=== PATIENT | female | born 1965 | race Native Hawaiian/Other Pacific Islander ===

== ENCOUNTER 2017-04-25 01:12 | Outpatient (CLI) | payer OTHER ==
[~2017-04-25 01:12] MED LIST: ACET-309 PO; ALBUSOL IN; AZAT50TA2 PO; DICL1GEL2 TOP; DOCU100C10 PO; FURO40TA93 PO; GAS RELIEF125 M1 PO; GRALISE600 MG PO; GUAI600T70 PO; IBUP800T30 PO; INSU100P; LIDOPATCH TOP; LORAZEPAM1 MG PO; MORPHINE SUL100 MG PO; MORPHINE SUL15 M1 PO; MORPHINE SUL30 M2 PO; MORPHINE SUL30 MG PO; MORPHINE SUL60 MG PO; MORPHINE SULFAT30 MG PO; NEURONTIN600 MG PO; NOVOLOG MIX 70/30 PR SC; NOVOLOG MIX 70/30 SC; POTA20TA4 PO; PRED10TA27 PO; PROAIR HFA IN; SERT100T PO; TEMA30CA18 PO; TIZA4TAB5 PO; WELLBUTRIN150 MG PO; ZOFRAN8 MG PO; [UNRECOGNIZED DRUG - CODE] INJ
== END 2017-04-25 21:43 | disposition home or self-care (01) ==
LOC: RAD 01:12
DX: R06.02 Shortness of breath (principal)

== ENCOUNTER 2020-04-26 22:03 | Inpatient (IN) | payer OTHER ==
[~2020-04-26] VITALS: Ht 170.2 cm; Wt 125.4 kg
[2020-04-26 22:03] VITALS: BP 169/96; TEMP 98.5
[2020-04-26 22:58] LABS: PLATELET COUNT 346 K/uL (152-353)
[2020-04-26 23:00] VITALS: BP 157/104
[2020-04-26 23:03] LABS: POTASSIUM 3.9 mmol/L (3.6-5.2); SODIUM 138 mmol/L (136-145)
[2020-04-27] VITALS (9 sets, daily range): BP systolic 126–165; BP diastolic 79–100; TEMP 98–98.9; Ht 170.2 cm; Wt 125.4 kg
[2020-04-27] MEDS ORDERED: CARV12.5 PO (03:57)
[2020-04-27] MEDS ORDERED: CLON1TAB18 PO (03:58)
[2020-04-27] MEDS ORDERED: LAMICTAL200 MG PO (03:59)
[2020-04-27] MEDS ORDERED: COZAAR100 MG PO (04:00)
[2020-04-27] MEDS ORDERED: ENDOCET1 TA1 PO (04:03)
[2020-04-27] MEDS ORDERED: TRAMADOL HYDROC50 MG PO (04:04)
[2020-04-27 08:22] LABS: PLATELET COUNT 323 K/uL (152-353)
[2020-04-27 08:31] LABS: POTASSIUM 4.4 mmol/L (3.6-5.2)
[2020-04-28 00:06] VITALS: BP 114/71; TEMP 97.8
[2020-04-28 04:00] VITALS: BP 139/92; TEMP 98
[2020-04-28 05:59] LABS: PLATELET COUNT 351 K/uL (152-353)
[2020-04-28 06:51] LABS: POTASSIUM 3.8 mmol/L (3.6-5.2)
[2020-04-28 08:00] VITALS: BP 131/88; TEMP 97.9
[2020-04-28 12:00] VITALS: BP 133/85; TEMP 97.9
[2020-04-28 16:00] VITALS: BP 123/64; TEMP 97.6
[2020-04-28] MEDS ORDERED: AZIT250T3 PO (20:01)
[2020-04-28] MEDS ORDERED: LEVAQUIN250 MG PO (20:06)
== END 2020-04-28 21:05 | disposition home or self-care (01) | DRG 193 ==
LOC: ED 22:22 → MED/SURG 04-27 02:05 → ED 04-27 02:05 → MED/SURG 04-27 02:05
PROVIDERS: ADMIT Family Medicine; ATTEND Internal Medicine Endocrinology, Diabetes & Metabolism
DX: J18.8 Other pneumonia, unspecified organism (principal); J96.21 Acute and chronic respiratory failure with hypoxia; E11.65 Type 2 diabetes mellitus with hyperglycemia; J44.9 Chronic obstructive pulmonary disease, unspecified; D72.828 Other elevated white blood cell count; F32.89 Other specified depressive episodes
CPT/HCPCS: 36415; 80048; 80053; 81000; 82550; 82947; 83605; 83880; 84484; 85027; 85379; 87040; 87635; 94667; 94760; 96365; 96375; 99284; J0456; J0696; J1815; J2930; U0003

== ENCOUNTER 2020-06-25 13:22 | Outpatient (CLI) | payer OTHER ==
[~2020-06-25 13:22] MED LIST changes: +AZIT250T3 PO; +CARV12.5 PO; +CLON1TAB18 PO; +COZAAR100 MG PO; +ENDOCET1 TA1 PO; +LAMICTAL200 MG PO; +LEVAQUIN250 MG PO; +TRAMADOL HYDROC50 MG PO
== END 2020-06-25 22:19 | disposition home or self-care (01) ==
LOC: INF 13:22
PROVIDERS: ATTEND Internal Medicine
DX: Z23 Encounter for immunization (principal)
CPT/HCPCS: 96372

== ENCOUNTER 2020-07-31 14:01 | Outpatient (CLI) | payer OTHER | END 2020-07-31 19:57 | disposition home or self-care (01) | LOC: INF 14:01 | PROVIDERS: ATTEND Internal Medicine | DX: Z23 Encounter for immunization (principal) | CPT/HCPCS: 96372 ==

== ENCOUNTER 2021-06-30 06:51 | Observation (INO) | payer OTHER ==
[~2021-06-30] VITALS: Ht 170.2 cm; Wt 121.6 kg
[2021-06-30 06:55] VITALS: BP 159/95; TEMP 97.1
[2021-06-30 07:27] LABS: PLATELET COUNT 345 K/uL (152-353)
[2021-06-30 07:47] LABS: POTASSIUM 4.4 mmol/L (3.6-5.2)
[2021-06-30] MEDS ORDERED: CARV6.25 PO (13:10)
[2021-06-30] MEDS ORDERED: MECLIZINE25 MG PO (13:17)
[2021-06-30] MEDS ORDERED: SEROQUEL100 MG PO (13:18)
[2021-06-30] MEDS ORDERED: FLUTICASON50 MCG/AC1 NAS (13:20)
[2021-06-30] MEDS ORDERED: ONDANSETRON HYDR8 MG PO ×2 (13:21)
[2021-06-30] MEDS ORDERED: HYDR10TA47 PO (13:22)
[2021-06-30 14:54] VITALS: BP 147/108; TEMP 97.9; Ht 170.2 cm; Wt 121.6 kg
[2021-06-30 16:00] VITALS: BP 128/94; TEMP 97.6
[2021-06-30 20:00] VITALS: BP 125/69; TEMP 98.9
[2021-06-30 23:43] VITALS: BP 129/77; TEMP 98.6
[2021-07-01 04:00] VITALS: BP 143/98; TEMP 97.8
[2021-07-01 08:00] VITALS: BP 137/105; TEMP 97.6
[2021-07-01 12:00] VITALS: BP 140/85; TEMP 98.1
[2021-07-01 16:00] VITALS: BP 142/93; TEMP 98.3
[2021-07-01 16:02] LABS: PLATELET COUNT 294 K/uL (152-353)
[2021-07-01 16:09] LABS: POTASSIUM 3.8 mmol/L (3.6-5.2)
[2021-07-01 20:00] VITALS: BP 143/85; TEMP 97.7
[2021-07-02] VITALS: BP 122/77; TEMP 98.2
[2021-07-02 04:00] VITALS: BP 136/85; TEMP 98.7
[2021-07-02 08:00] VITALS: BP 126/79; TEMP 98.2
[2021-07-02 12:00] VITALS: BP 132/74; TEMP 98.3
[2021-07-02] MEDS ORDERED: PROTONIX20 MG PO (12:02)
[2021-07-02] MEDS ORDERED: PEPCID40 MG PO (12:16)
== END 2021-07-02 13:55 | disposition home or self-care (01) ==
LOC: ED 06:51 → MED/SURG 09:15
PROVIDERS: Emergency Medicine; Internal Medicine; ADMIT Internal Medicine Endocrinology, Diabetes & Metabolism; ATTEND Internal Medicine Endocrinology, Diabetes & Metabolism
DX: R07.89 Other chest pain (principal); J96.10 Chronic respiratory failure, unspecified whether with hypoxia or hypercapnia; Z99.81 Dependence on supplemental oxygen; J84.89 Other specified interstitial pulmonary diseases; E11.9 Type 2 diabetes mellitus without complications; G47.33 Obstructive sleep apnea (adult) (pediatric); E66.01 Morbid (severe) obesity due to excess calories; F32.A Depression, unspecified; D63.8 Anemia in other chronic diseases classified elsewhere; K57.92 Diverticulitis of intestine, part unspecified, without perforation or abscess without bleeding; I10 Essential (primary) hypertension; K76.0 Fatty (change of) liver, not elsewhere classified; R10.13 Epigastric pain
CPT/HCPCS: 36600; 80053; 81000; 81002; 82550; 82805; 82948; 83690; 84484; 85027; 85610; 87086; 87088; 87635; 93005; 94760; 96360; 96361; 96372; 96375; 99220; 99284; G0378; J1650; J1815; J1956; J2060; J2270; J2405; J2550; J3490; Q9963; U0003

== ENCOUNTER 2022-02-16 13:23 | Outpatient (CLI) | payer OTHER ==
[~2022-02-16 13:23] MED LIST changes: +CARV6.25 PO; +FLUTICASON50 MCG/AC1 NAS; +HYDR10TA47 PO; +MECLIZINE25 MG PO; +ONDANSETRON HYDR8 MG PO; +PEPCID40 MG PO; +PROTONIX20 MG PO; +SEROQUEL100 MG PO
== END 2022-02-16 19:17 | disposition home or self-care (01) ==
LOC: MAMMO 13:23
PROVIDERS: ATTEND Nurse Practitioner Family
DX: N64.59 Other signs and symptoms in breast (principal); M79.621 Pain in right upper arm; M79.622 Pain in left upper arm; R07.89 Other chest pain

== ENCOUNTER 2022-05-14 13:46 | Outpatient (CLI) | payer OTHER | END 2022-05-14 19:59 | disposition home or self-care (01) | LOC: MRI 13:46 | PROVIDERS: ATTEND Internal Medicine | DX: M54.59 Other low back pain (principal); M62.81 Muscle weakness (generalized) ==

== ENCOUNTER 2022-10-03 08:09 | Observation (INO) | payer OTHER ==
[~2022-10-03] VITALS: Ht 170.2 cm; Wt 118.2 kg
[2022-10-03] VITALS (11 sets, daily range): BP systolic 110–144; BP diastolic 64–101; TEMP 97–98.6; Ht 170.2 cm; Wt 118.2 kg
[2022-10-03 08:28] LABS: PLATELET COUNT 372 K/uL (152-353)
[2022-10-03 08:37] LABS: SODIUM 131 mmol/L (136-145)
[2022-10-03] MEDS ORDERED: CLONAZEPAM PO (18:32)
[2022-10-03] MEDS ORDERED: LAMICTAL200 MG PO (18:33)
[2022-10-03] MEDS ORDERED: TRESIBA SC (18:34)
[2022-10-03] MEDS ORDERED: HUMALOG KW100 UNIT/M SC (18:35)
[2022-10-03] MEDS ORDERED: PANTOPRAZOLE 40MG TA PO (18:35)
[2022-10-03] MEDS ORDERED: FAMOTIDINE40 MG PO (18:35)
[2022-10-03] MEDS ORDERED: CARV12.5 PO (18:36)
[2022-10-03] MEDS ORDERED: QUET300T PO (18:36)
[2022-10-03] MEDS ORDERED: TIZA4TAB5 PO (18:37)
[2022-10-04 03:56] VITALS: BP 104/56; TEMP 98.3
[2022-10-04 08:07] VITALS: BP 131/75; TEMP 97.7
[2022-10-04] MEDS ORDERED: INSU-1996 SC (11:26)
[2022-10-04] MEDS ORDERED: INSU100P SC (11:27)
[2022-10-04] MEDS ORDERED: PRED20TA27 PO (11:29)
[2022-10-04] MEDS ORDERED: AZIT250T3 PO (11:29)
[2022-10-04 12:00] VITALS: BP 136/85; TEMP 97.6
[2022-10-04 16:00] VITALS: BP 136/91; TEMP 98
== END 2022-10-04 17:22 | disposition home or self-care (01) ==
LOC: ED 08:09 → MED/SURG 10:03
PROVIDERS: Family Medicine; ADMIT Internal Medicine; ATTEND Internal Medicine
DX: J44.1 Chronic obstructive pulmonary disease with (acute) exacerbation (principal); E11.65 Type 2 diabetes mellitus with hyperglycemia; K31.84 Gastroparesis; E11.40 Type 2 diabetes mellitus with diabetic neuropathy, unspecified; Z79.4 Long term (current) use of insulin; E66.01 Morbid (severe) obesity due to excess calories; Z68.41 Body mass index [BMI] 40.0-44.9, adult; Z99.81 Dependence on supplemental oxygen; J96.11 Chronic respiratory failure with hypoxia; B37.2 Candidiasis of skin and nail
CPT/HCPCS: 80053; 82948; 83880; 84484; 85027; 87635; 93005; 94664; 94760; 96360; 96361; 96365; 96366; 96367; 96372; 96374; 96375; 99221; 99284; G0378; J0456; J0696; J1815; J2405; J2930; U0003